=== PATIENT | female | born 1930 | race Caucasian/White ===

== ENCOUNTER → 2016-11-28 | Outpatient (CLI) | payer OTHER ==
[~2016-11-28] MED LIST: ATENOLOL25 MG PO; CENTRUM1 TAB PO; DARVOCET N 1001 TAB PO; DYAZIDE 25 MG-31 CAP PO; FOLIC ACID0.4 MG; HYDROCODONE BIT1 T11 PO; Lortab 5/500 501 TAB PO; MELOXICAM15 MG PO; MOBIC7.5 MG PO; MOTRIN400 MG PO; MOTRIN600 MG PO; MOTRIN800 MG PO; NORCO 325 MG-51 TAB PO; NORVASC2.5 MG; NORVASC5 MG PO; PERCOCET 325 MG1 TA2 PO; PROBIOTIC & AC1 EACH PO; PROTONIX20 MG PO; UNABLE TO REMEMBER; VICODIN 5/500 505 MG PO; VITAMIN B1100 MCG/ML IM; [UNRECOGNIZED DRUG - OTHER] PO
[2016-11-28 10:01] LABS: BODY FLUID RBC 2000 /uL; BODY FLUID WBC 3733 /uL
[2016-11-28 11:36] LABS: BF LYMPHOCYTES 90 %; BF MACROPHAGES 10 %; BODY FLUID TYPE SYNOVIAL
[2016-11-29 14:09] LABS: ACID FAST SPEC PROCESSING Concentration (.)
== END | disposition home or self-care (01) ==
LOC: LAB 09:27
PROVIDERS: Physician Assistant
DX: M25.561 Pain in right knee (principal); Z96.651 Presence of right artificial knee joint